=== PATIENT | female | born 1990 | race Caucasian/White ===

== ENCOUNTER 2016-11-07 05:41 | Emergency (ER) | payer OTHER ==
[~2016-11-07] VITALS: Ht 160 cm; Wt 56.7 kg
--- NOTE | 2016-11-07 06:39 | ED GI/GU/ABDOMINAL COMPLAINT ---
History of Present Illness General Chief Complaint: Abdominal Pain/Flank Pain Stated Complaint: "PER DAD ABD PAIN" Source: patient Exam Limitations: no limitations Vital Signs & Intake/Output Vital Signs & Intake/Output Vital Signs Date Time Temp Pulse Resp B/P B/P Pulse O2 O2 Flow FiO2 Mean Ox Delivery Rate 11/07 0810 98.2 75 20 111/61 100 Room Air 11/07 0545 98.1 120 18 129/86 100 Room Air Allergies Coded Allergies: NO KNOWN ALLERGIES (12/28/11) Triage Note: Abdominal pain since 429. Getting ready for work when pain started suddenly. Nauseated, no vomiting. Describes pain from xyphoid process to area above umbilicus with radiation into left side of back. PMH of same pain, seen in ED, diagnosed with acid reflux with relief Triage Nurses Notes Reviewed? yes ? N Is pt currently ? No Onset: Gradual Duration: hour(s):, waxing and waning Timing: recent history Quality/Severity: sharpness Location: generalized abdomen, right lower quadrant Radiation: no radiation Activities at Onset: none Prior Abdominal Problems: none Modifying Factors: Worsens With: palpation. Associated Symptoms: abdominal pain, nausea/vomiting HPI: 26 yo woman presents with right lower quadrant and diffuse abdominal discomfort that began yesterday. "Around 4:30 when I woke up, it was really painful and just got worse." She notes nausea, but no vomiting, diarrhea, rash, chills. She has no vaginal discharge, dysuria, chills, shortness of breath. She does not recall any etiology for her symptoms. She is otherwise well. (CAITLIN BARRIOS,MARSHAL Joe) Reconcile Medications Cyclobenzaprine HCl 10 MG TABLET 1 TAB PO BID PRN PAIN (Reported) (JANEEN BARRIOS,CHELSEA) Past History Travel History Traveled to [place] past 21 day No Medical History Any Pertinent Medical History? see below for history Gastrointestinal: GERD Surgical History Surgical History: none Psychosocial History What is your primary language Amharic Tobacco Use: Never used ETOH Use: occasional use Illicit Drug Use: denies illicit drug use Family History Hx Contributory? No (CAITLIN BARRIOS,MARSHAL Joe) Review of Systems Review of Systems Constitutional: Reports: no symptoms. EENTM: Reports: no symptoms. Respiratory: Reports: no symptoms. Cardiovascular: Reports: no symptoms. GI: Reports: no symptoms. Genitourinary: Reports: no symptoms. Musculoskeletal: Reports: no symptoms. Skin: Reports: no symptoms. Neurological/Psychological: Reports: no symptoms. Hematologic/Endocrine: Reports: no symptoms. Immunologic/Allergic: Reports: no symptoms. All Other Systems: Reviewed and Negative (CAITLIN BARRIOS,MARSHAL Joe) Physical Exam Physical Exam General Appearance: well developed/nourished, mild distress Head: atraumatic, normal appearance Eyes: Bilateral: normal appearance. Ears, Nose, Throat, Mouth: hearing grossly normal Neck: normal inspection, supple, full range of motion, normal alignment Respiratory: normal breath sounds, chest non-tender, no respiratory distress Cardiovascular: regular rate/rhythm, edema Gastrointestinal: normal bowel sounds, soft, rlq tenderness, with slight rebound. +rosving's sign. Back: normal inspection, normal range of motion Extremities: normal range of motion Neurologic/Psych: no motor/sensory deficits, awake, alert, oriented x 3 Skin: intact, normal color, warm/dry Core Measures ACS in differential dx? No Severe Sepsis Present: No Septic Shock Present: No (CAITLIN BARRIOS,MARSHAL Joe) Progress Differential Diagnosis: appendicitis, biliary colic, cholecystitis, gastritis, hepatitis Plan of Care: Orders Procedure Date/time Status LACTIC ACID 11/07 0939 Active LIPASE 11/07 0639 Complete LACTIC ACID 11/07 0639 Complete HEPATIC FUNCTION PANEL 11/07 0639 Complete CBC WITHOUT DIFFERENTIAL 11/07 0639 Complete BASIC METABOLIC PANEL 11/07 0639 Complete AMYLASE 11/07 0639 Complete URINE 11/07 0629 Complete URINALYSIS 11/07 0629 Complete Laboratory Tests 11/07/16 0700: Anion Gap 10, Estimated GFR > 60, BUN/Creatinine Ratio 18.6, Glucose 92, Lactic Acid 1.6, Calcium 9.8, Total Bilirubin 1.3, Direct Bilirubin 0.2, AST 27, ALT 38 , Alkaline Phosphatase 102, Total Protein 7.1, Albumin 4.3, Amylase 91, Lipase 69, CBC w Diff MAN DIFF ORDERED, RBC 4.47, MCV 93.1, MCH 31.1 H, RDW 12.3, MPV 8.3, Gran % 66.4, Lymphocytes % 24.1, Monocytes % 7.6, Eosinophils % 1.4, Basophils % 0.5, Absolute Granulocytes 8.2 H, Absolute Lymphocytes 3.0, Absolute Monocytes 0.9 H, Absolute Eosinophils 0.2, Absolute Basophils 0.1, Platelet Estimate ADEQUATE, Normocytic RBCs VERIFIED, Normochromic RBCs VERIFIED , PUBS MCHC 33.4 11/07/16 0635: Urine Color YEL, Urine Clarity CLEAR, Urine pH 7.0, Ur Specific [place] <= 1.005 , Urine Protein NEG, Urine Ketones NEG, Urine Nitrite NEG, Urine Bilirubin NEG, Urine Urobilinogen 0.2, Ur Leukocyte Esterase NEG, Ur Microscopic EXAM NOT REQUIRED, Urine Hemoglobin NEG, Urine Glucose NEG, Urine Test NEGATIVE 11/07/2016 8:24:[address] scan is negative for appendicitis. After emptying out her bladder patient still has significant tenderness in the right lower quadrant. Surgery paged to review CT scan. 11/07/2016 9:59:19 AM Patient is cast with Dr. Escobar and CT scan reviewed. No evidence of appendicitis. Patient given appendicitis rule out instructions and advised clear liquid diet for the next 24 hours. They will return if symptoms are worse. (CHELSEA VERNON MD) Diagnostic Imaging: Viewed by Me: CT Scan. Discussed w/RAD: CT Scan. Initial ED EKG: none Hand-Off Endorsed To: CHELSEA VERNON MD Endorsed Time: 0700 Pending: CT, labs (CAITLIN BARRIOS,MARSHAL Joe) Diagnostic Imaging: Viewed by Me: CT Scan. Discussed w/RAD: CT Scan. Radiology Impression: PATIENT: ISAEL FOX PRESENT AGE: 26 PATIENT ACCOUNT NO: [id number] : 92 LOCATION: [facility] ORDERING PHYSICIAN: MARSHAL TUCKER MD SERVICE DATE: 11/07/16 EXAM TYPE: CAT - CT ABD & PELVIS W/O IV CONTRAS Addendum: This exam was compared to a CT of the abdomen pelvis from 12/29/2011. Addendum Signed by: LISA AQUINO MD 11/07/16 3832 EXAMINATION: CT ABDOMEN AND PELVIS WITHOUT CONTRAST CLINICAL INFORMATION: Right lower quadrant pain. Rosving sign. COMPARISON: None TECHNIQUE: Multidetector volumetric imaging was performed from the superior aspect of the liver through the pubic symphysis. Sagittal and coronal reformatted images were obtained on the technologist's workstation. DLP: 249.98 mGy-cm FINDINGS: LUNG BASES: The visualized lung bases are unremarkable. LIVER, GALLBLADDER, AND BILIARY TREE: The liver is normal in size, shape, and attenuation. No focal hepatic lesion or biliary ductal dilatation is present. The gallbladder is unremarkable with no evidence of radiopaque gallstones, gallbladder wall thickening, or obvious pericholecystic inflammatory changes. PANCREAS: Unremarkable. SPLEEN: Unremarkable. ADRENAL GLANDS: Unremarkable. KIDNEYS AND URETERS: The kidneys are normal in size, shape, and attenuation. No hydronephrosis, hydroureter, or calculi seen. No perinephric stranding. BLADDER: Unremarkable. GASTROINTESTINAL TRACT: Evaluation for inflammation of the bowel is limited without the use of intravenous contrast. The appendix is partially visualized and normal in appearance with no evidence to suggest appendicitis ( coronal image 36/82). Moderate stool is seen in the colon without bowel obstruction. No thickening of bowel loops are demonstrated. No evidence of extraluminal air. ABDOMINAL WALL: Small fat-containing umbilical hernia is seen. The abdominal wall is otherwise unremarkable. LYMPH NODES: Normal. VASCULAR: Unremarkable. PELVIC VISCERA: The uterus and adnexa are unremarkable. OSSEOUS STRUCTURES: Unremarkable. IMPRESSION: No significant abnormality on this noncontrast CT of the abdomen. No evidence of bowel obstruction. No abnormal thickening of the appendix. Small fat-containing umbilical hernia is seen. DICTATED BY: LISA AQUINO MD DATE/TIME DICTATED:11/07/16729 DATA CENTER ARCHITECT:DERICK DATE/TIME TRANSCRIBED:11/07/16729 CONFIDENTIAL, DO NOT COPY WITHOUT APPROPRIATE AUTHORIZATION. <Electronically signed in Other Vendor System> SIGNED BY: LISA AQUINO MD 11/07/16 0744 (CHELSEA VERNON MD) Departure Departure Condition: Stable Clinical Impression Primary Impression: Abdominal pain Referrals: PATIENT HAS NO PRIMARY CARE DR (PCP/Family) Departure Forms: Customer Survey General Discharge Information (CAITLIN BARRIOS,MARSHAL Joe) Departure Disposition: HOME OR SELF CARE Additional Instructions: Please follow a clear liquid diet and advance as tolerated. Motrin or Tylenol as needed for pain. Follow up with outpatient ultrasound as well as with MARINE SERVICES TECHNICIAN. Return to the ER for any changing or worsening symptoms. (CHELSEA VERNON MD)
[2016-11-07 07:22] LABS: ABSOLUTE BASOPHIL COUNT 0.1 /CUMM (0.0-0.2); ABSOLUTE EOSINOPHIL COUNT 0.2 /CUMM (0.0-0.7); ABSOLUTE GRANULOCYTE CT 8.2 /CUMM (1.4-6.5); ABSOLUTE MONOCYTE COUNT 0.9 /CUMM (0.10-0.60); BASOPHIL % 0.5 % (0.0-2.0); EOSINOPHIL % 1.4 % (0-5); GRANULOCYTE % 66.4 % (42.2-75.2); HEMATOCRIT 41.6 % (37-47); MEAN CORPUSCULAR HGB 31.1 PG (27.0-31.0); MEAN CORPUSCULAR HGB CONC 33.4 G/DL (33.0-37.0); MEAN CORPUSCULAR VOLUME 93.1 FL (81.0-99.0); MEAN PLATELET VOLUME 8.3 FL (7.4-10.4); PLATELET COUNT 311 /CUMM (130-400); RBC DISTRIBUTION WIDTH 12.3 % (11.5-14.5); RED BLOOD CELL CT 4.47 /CUMM (4.20-5.40); WHITE BLOOD CELL COUNT 12.3 /CUMM (4.8-10.8)
--- NOTE | 2016-11-07 07:44 | CT SCAN REPORT ---
EXAMINATION: CT ABDOMEN AND PELVIS WITHOUT CONTRAST CLINICAL INFORMATION: Right lower quadrant pain. Rosving sign. COMPARISON: None TECHNIQUE: Multidetector volumetric imaging was performed from the superior aspect of the liver through the pubic symphysis. Sagittal and coronal reformatted images were obtained on the technologist's workstation. DLP: 249.98 mGy-cm FINDINGS: LUNG BASES: The visualized lung bases are unremarkable. LIVER, GALLBLADDER, AND BILIARY TREE: The liver is normal in size, shape, and attenuation. No focal hepatic lesion or biliary ductal dilatation is present. The gallbladder is unremarkable with no evidence of radiopaque gallstones, gallbladder wall thickening, or obvious pericholecystic inflammatory changes. PANCREAS: Unremarkable. SPLEEN: Unremarkable. ADRENAL GLANDS: Unremarkable. KIDNEYS AND URETERS: The kidneys are normal in size, shape, and attenuation. No hydronephrosis, hydroureter, or calculi seen. No perinephric stranding. BLADDER: Unremarkable. GASTROINTESTINAL TRACT: Evaluation for inflammation of the bowel is limited without the use of intravenous contrast. The appendix is partially visualized and normal in appearance with no evidence to suggest appendicitis (coronal image 36/82). Moderate stool is seen in the colon without bowel obstruction. No thickening of bowel loops are demonstrated. No evidence of extraluminal air. ABDOMINAL WALL: Small fat-containing umbilical hernia is seen. The abdominal wall is otherwise unremarkable. LYMPH NODES: Normal. VASCULAR: Unremarkable. PELVIC VISCERA: The uterus and adnexa are unremarkable. OSSEOUS STRUCTURES: Unremarkable. IMPRESSION: No significant abnormality on this noncontrast CT of the abdomen. No evidence of bowel obstruction. No abnormal thickening of the appendix. Small fat-containing umbilical hernia is seen.
[2016-11-07] MEDS ORDERED: CYCLOBENZAPRINE10 M1 PO (08:07)
[2016-11-07 08:10] VITALS: BP 111/61
== END 2016-11-07 10:15 ==
LOC: ERH 05:41
PROVIDERS: Pediatrics
DX: R10.31 Right lower quadrant pain (principal)
CPT/HCPCS: 74176; 81001; 81003; 81025; 96361; 96374; 96375; J1885; J2405